=== PATIENT | female | born 1975 | race Two or more races ===

== ENCOUNTER 2019-08-16 14:27 | Emergency (ER) | payer OTHER ==
[2019-08-16 14:33] VITALS: BMI 29.2
[2019-08-16] MEDS ORDERED: ONDANSETRON *ODT* 4 MG TABLET SL ONE (15:16)
--- NOTE | 2019-08-16 15:24 | PDOC ---
History of Present Illness - General History Source: Patient Exam Limitations: Clinical Condition - History of Present Illness Initial Comments: 08/16/19 15:24 Patient with no significant past medical history presented with complaint of nausea, vomiting and diarrhea since overnight. Patient reports visiting a friend's house who child has similar symptoms 3 days ago with fevers and friend also has same symptoms 2 days ago. Patient reporting daughter home sick with the same symptoms with fever and diarrhea. Patient thinks he might be having stomach virus. Patient did not take anything for symptoms Is this a multiple visit Asthma Patient?: No <Devan Rm - Last Filed: 08/16/19 15:58> <David Aragon - Last Filed: 08/20/19 10:34> - General Chief Complaint: Pain Stated Complaint: VOMITING Time Seen by Provider: 08/16/19 15:00 Past History - Past Medical History COPD: No - Psycho Social/Smoking Cessation Hx Smoking History: Never smoked <Devan Rm - Last Filed: 08/16/19 15:58> <David Aragon - Last Filed: 08/20/19 10:34> - Past Medical History Allergies/Adverse Reactions: Allergies Allergy/AdvReac Type Severity Reaction Status Date / Time No Known Allergies Allergy Verified 08/16/19 14:33 Home Medications: Ambulatory Orders Loperamide HCl [Loperamide] 2 mg PO Q8H PRN #12 capsule 08/16/19 Mag Hydrox/Aluminum Hyd/Simeth [Maalox Advanced Suspension] 30 ml PO Q8H PRN # 200 ml 08/16/19 Ondansetron [Zofran *Odt*] 4 mg SL Q8H PRN #12 od.tablet 08/16/19 Review of Systems - Review of Systems Able to Perform ROS?: Yes Is the patient limited [place] proficient: No Constitutional: No: Chills, Fever, Malaise HEENTM: No: Symptoms Reported, See HPI, Eye Pain, Blurred Vision, Tearing, Recent change in vision, Double Vision, Cataracts, Ear Pain, Ocular Prothesis, Ear Discharge, Nose Pain, Nose Congestion, Tinnitus, Nose Bleeding, Hearing Loss , Throat Pain, Throat Swelling, Mouth Pain, Dental Problems, Difficulty Swallowing, Mouth Swelling, Other Respiratory: No: Symptoms reported, See HPI, Cough, Orthopnea, Shortness of Breath, SOB with Exertion, SOB at Rest, Stridor, Wheezing, Productive cough, Hemoptysis, Other Cardiac (ROS): No: Symptoms Reported, See HPI, Chest Pain, Edema, Irregular Heart Rate, Lightheadedness, Palpitations, Syncope, Chest Tightness, Other ABD/GI: Yes: Symptoms Reported, See HPI, Diarrhea, Nausea, Vomiting. No: Abd. Pain w/ defecation, Blood Streaked Bowels, Constipated, Difficulty Swallowing, Poor Appetite, Rectal Bleeding, Indigestion, Abdominal cramping : No: Symptoms Reported Musculoskeletal: No: Symptoms Reported Integumentary: No: Symptoms Reported Neurological: No: Symptoms reported, Headache, Numbness, Dizziness All Other Systems: Reviewed and Negative <Devan Rm - Last Filed: 08/16/19 15:58> *Physical Exam - Vital Signs Last Vital Signs Temp Pulse Resp BP Pulse Ox 98.6 F 89 18 120/66 99 08/16/19 14:31 08/16/19 14:31 08/16/19 14:31 08/16/19 14:31 08/16/19 14:31 - Physical Exam 08/16/19 15:28 GENERAL: Well developed, well nourished. Awake and alert. No acute distress. HEENT: Normocephalic, atraumatic. PERRLA, EOMI. No conjunctival pallor. Sclera are non-icteric. Moist mucous membranes. Oropharynx is clear. NECK: Supple. Full ROM. CARDIOVASCULAR: Regular rate and rhythm. No murmurs, rubs, or gallops. Distal pulses are 2+ and symmetric. PULMONARY: No evidence of respiratory distress. Lungs clear to auscultation bilaterally. No wheezing, rales or rhonchi. ABDOMINAL: Soft. Non-tender. Non-distended. No rebound or guarding. No organomegaly. Normoactive bowel sounds. MUSCULOSKELETAL Normal range of motion at all joints. SKIN: Warm and dry. Normal capillary refill. No rashes. No cyanosis. NEUROLOGICAL: Alert, awake, appropriate. Gait is normal without ataxia. PSYCHIATRIC: Cooperative. Good eye contact. Appropriate mood General Appearance: Yes: Nourished, Appropriately Dressed. No: Apparent Distress <Devan Rm - Last Filed: 08/16/19 15:58> - Vital Signs Last Vital Signs Temp Pulse Resp BP Pulse Ox 98 F 88 18 101/68 100 08/16/19 16:15 08/16/19 16:15 08/16/19 16:15 08/16/19 16:15 08/16/19 16:15 <David Aragon - Last Filed: 08/20/19 10:34> ED Treatment Course - Medications Given in the ED: ED Medications Discontinued Medications Generic Name Dose Route Start Last Admin Trade Name Freq PRN Reason Stop Dose Admin Ondansetron HCl 4 mg 08/16/19 15:16 08/16/19 16:05 Zofran Odt - SL 08/16/19 15:17 4 mg ONCE ONE Administration <David Aragon - Last Filed: 08/20/19 10:34> Medical Decision Making - Medical Decision Making 08/16/19 15:25 Patient with no significant past medical history presented with complaint of nausea, vomiting and diarrhea since overnight. Patient reports visiting a friend's house who child has similar symptoms 3 days ago with fevers and friend also has same symptoms 2 days ago. Patient reporting daughter home sick with the same symptoms with fever and diarrhea. Patient thinks he might be having stomach virus. Patient did not take anything for symptoms Clinical exam unremarkable with patient afebrile. No abdominal tenderness. Lungs clear to auscultation bilateral no pharyngeal erythema. Patient here with child with similar symptoms who also has fever. Patient will be treated based on child's lab result of flu and strep. Patient symptoms likely viral gastroenteritis 08/16/19 15:58 Patient stable for discharge outpatient treatment on Zofran PRN for nausea and vomiting and loperamide for diarrhea with advised to increase fluid intake and follow-up with primary care <Devan Rm - Last Filed: 08/16/19 15:58> - Medical Decision Making 08/20/19 10:34 I reviewed the case of the mid-level practitioner and was available for consultation while in the emergency department <David Aragon - Last Filed: 08/20/19 10:34> Discharge - Discharge Information Problems reviewed: Yes - Admission No <Devan Rm - Last Filed: 08/16/19 15:58> <David Aargon - Last Filed: 08/20/19 10:34> - Discharge Information Clinical Impression/Diagnosis: Viral gastroenteritis Nausea & vomiting Qualifiers: Vomiting type: unspecified Vomiting Intractability: non-intractable Qualified Code(s): R11.2 - Nausea with vomiting, unspecified Condition: Stable Disposition: HOME - Additional Discharge Information Prescriptions: Loperamide HCl [Loperamide] 2 mg PO Q8H PRN #12 capsule PRN Reason: diarrhea Mag Hydrox/Aluminum Hyd/Simeth [Maalox Advanced Suspension] 30 ml PO Q8H PRN # 200 ml PRN Reason: abdominal discomfort Ondansetron [Zofran *Odt*] 4 mg SL Q8H PRN #12 od.tablet PRN Reason: vomiting - Patient Discharge Instructions Patient Printed Discharge Instructions: DI for Viral Gastroenteritis -- Adult Additional Instructions: Your symptoms likely caused by stomach virus. Take prescribed medication as prescribed for vomiting and diarrhea. Increase fluid intake. Follow-up with primary care - Post Discharge Activity Work/Back to School Note: Back to Work
[2019-08-16] MEDS ORDERED: ONDANSETRON *ODT* 4 MG TABLET ONE (16:07)
[2019-08-16 16:26] VITALS: BP 101/68; PULSE 88; TEMP 98
== END 2019-08-16 16:15 | disposition home or self-care (01) ==
LOC: JER 14:27
DX: A08.4 Viral intestinal infection, unspecified (principal); B97.89 Other viral agents as the cause of diseases classified elsewhere
CPT/HCPCS: 99281-25; Q0162

== ENCOUNTER 2020-11-26 13:53 | Emergency (ER) | payer OTHER ==
[2020-11-26 13:58] VITALS: BP 145/95; PULSE 85; TEMP 98.1; BMI 28.3
[2020-11-26] MEDS ORDERED: KETOROLAC TROMETHAMINE 60 MG/2 ML VIAL IM ONE (14:42)
[2020-11-26] MEDS ORDERED: METHOCARBAMOL 500 MG TABLET PO ONE (14:42)
[2020-11-26] MEDS ORDERED: LIDOCAINE 5% TOPICAL PATCH TP ONE (14:43)
[2020-11-26] MEDS ORDERED: LIDOCAINE 5% TOPICAL PATCH ONE (14:49)
[2020-11-26] MEDS ORDERED: METHOCARBAMOL 500 MG TABLET ONE (14:49)
[2020-11-26] MEDS ORDERED: KETOROLAC TROMETHAMINE 30 MG/1 ML VIAL ONE (14:49)
== END 2020-11-26 15:29 | disposition home or self-care (01) ==
LOC: JERFT 13:53
PROC: 3E0233Z Introduction of Anti-inflammatory into Muscle, Percutaneous Approach (ICD-10-PCS; principal; 2020-11-26)
DX: M54.5 Low back pain (principal)
CPT/HCPCS: 72100-TC-FY; 99284-25

== ENCOUNTER 2024-03-21 12:51 | Emergency (ER) | payer OTHER ==
[2024-03-21] MEDS ORDERED: ACETAMINOPHEN INJECTION 100 ML IVPB ONE (13:50)
[2024-03-21] MEDS ORDERED: FAMOTIDINE 20 MG/50 ML IVPB 20 MG/50 ML MG IVPB ONE (13:50)
[2024-03-21 13:57] VITALS: BP 140/78; PULSE 85; RESP 20; TEMP 98; BMI 31.1
[2024-03-21 14:23] LABS: URINE APPEARANCE CLEAR; URINE BILIRUBIN NEGATIVE (NEGATIVE); URINE COLOR YELLOW; URINE GLUCOSE (UA) NEGATIVE (NEGATIVE); URINE KETONE NEGATIVE (NEGATIVE); URINE LEUK ESTERASE NEGATIVE (NEGATIVE); URINE NITRITE NEGATIVE (NEGATIVE); URINE PROTEIN NEGATIVE (NEGATIVE); URINE UROBILINOGEN 0.2 mg/dL (0.2-1.0)
[2024-03-21 14:26] LABS: BASO % 0.8 % (0-2.0); EOS % 0.7 % (0-4.5); HEMOGLOBIN 12.2 GM/dL (10.7-15.3); LYMPH % 25.1 % (8-40); MCH 27.5 pg (25.7-33.7); MEAN CELL VOLUME 83.1 fl (80-96); MONO % 7.1 % (3.8-10.2); NEUT % 66.3 % (42.8-82.8); PLATELET COUNT 324 10^3/uL (134-434); RBC 4.45 M/mm3 (3.60-5.2); RDW 13.7 % (11.6-15.6); WHITE BLOOD COUNT 7.8 K/mm3 (4.0-10.0)
[2024-03-21 14:50] LABS: CHLORIDE 106 mmol/L (98-107); POTASSIUM 4.4 mmol/L (3.5-5.1); SODIUM 138 mmol/L (136-145)
[2024-03-21 14:52] LABS: CALCIUM 8.8 mg/dL (8.5-10.1)
[2024-03-21 14:53] LABS: ALBUMIN 3.5 g/dl (3.4-5.0); ANION GAP 6 mmol/L (4-13); BLOOD UREA NITROGEN 12.4 mg/dL (7-18); CO2 26 mmol/L (21-32); GLUCOSE,RANDOM 83 mg/dL (74-106)
[2024-03-21 14:55] LABS: PHOSPHOROUS 3.2 mg/dL (2.5-4.9)
[2024-03-21 14:56] LABS: CREATININE 0.6 mg/dL (0.55-1.3); SGOT/AST 18 U/L (15-37); SGPT/ALT 31 U/L (13-61)
[2024-03-21 14:57] LABS: BILIRUBIN,TOTAL 0.4 mg/dL (0.2-1); TOT PROT 7.4 g/dl (6.4-8.2)
[2024-03-21 14:59] LABS: ALK PHOS 88 U/L (45-117)
[2024-03-21] MEDS: ACETAMINOPHEN 1000 MG/100 ML BAG IVPB ONE (15:19)
[2024-03-21] MEDS: SODIUM CHLORIDE 1,000 ML IV STA (15:19)
[2024-03-21] MEDS: FAMOTIDINE 20 MG/50 ML IVPB 20 MG/50 ML MG IVPB ONE (15:20)
== END 2024-03-21 18:01 | disposition home or self-care (01) ==
LOC: JER 12:51
PROC: 3E033GC Introduction of Other Therapeutic Substance into Peripheral Vein, Percutaneous Approach (ICD-10-PCS; principal; 2024-03-21)
PROC: 3E033NZ Introduction of Analgesics, Hypnotics, Sedatives into Peripheral Vein, Percutaneous Approach (ICD-10-PCS; 2024-03-21)
DX: R10.31 Right lower quadrant pain (principal)
CPT/HCPCS: 36415; 74177-TC; 80053; 81003; 82550; 83605; 83690; 83735; 84100; 84484; 84703; 85025; 87086; 93005; 93010; 99285-25; J0131; Q9967